=== PATIENT | male | born 1995 | race Caucasian/White ===

== ENCOUNTER → 2020-03-02 | Outpatient (CLI) | payer BC ==
[2020-03-02 11:48] LABS: ABSOLUTE EOSINOPHILS 0.1 thou/uL (0.0-0.7); ABSOLUTE LYMPHOCYTES 2.6 thou/uL (0.8-5.3); ABSOLUTE MONOCYTES 0.8 thou/uL (0.0-1.2); BASOPHILS 0.5 %; EOSINOPHILS 1.5 %; HEMATOCRIT 44.4 % (42.0-52.0); HEMOGLOBIN 15.4 gm/dL (14.0-18.0); LYMPHOCYTES 34.1 %; MCH 30.5 pg (26.0-34.0); MCHC 34.6 g/dL (28.0-37.0); MCV 88.1 fL (80.0-100.0); MONOCYTES 10.8 %; MPV 7.3 fl. (7.2-11.1); NUCLEATED RBCS 0 /100WBC; PLATELET COUNT* 256 thou/uL (150-400); POLYS 53.1 %; RBC 5.04 mil/uL (4.50-6.00); RDW-CV 12.6 % (10.5-14.5); WBC 7.6 thou/uL (4.0-11.0)
[2020-03-02 12:01] LABS: ALBUMIN 4.5 g/dL (3.4-5.0); ALKALINE PHOSPHATASE 59 U/L (46-116); ANION GAP 6 mmol/L (7-16); BUN 13 mg/dL (7-18); CALCIUM 9.2 mg/dL (8.5-10.1); CHLORIDE 102 mmol/L (98-107); CHOLESTEROL 130 mg/dL (<200); CO2 33 mmol/L (21-32); GLUCOSE 80 mg/dL (70-99); HDL CHOLESTEROL 67 mg/dL (>40); LDL CHOLESTEROL 50 mg/dL (<100); POTASSIUM 4.1 mmol/L (3.5-5.1); SERUM ASSESSMENT Clear; SGOT 44 U/L (15-37); SGPT 142 U/L (30-65); SODIUM 141 mmol/L (136-145); TC:HDL 1.9 Ratio (Not establshd); TOTAL PROTEIN 8.1 g/dL (6.4-8.2); TRIGLYCERIDE 66 mg/dL (<150); VLDL 13 mg/dL (<40)
[2020-03-04 02:05] LABS: GLYCOHEMOGLOBIN (HGB A1C) 5.1 % (4.8-5.6)
== END ==
LOC: M.LAB 11:25
DX: Z79.899 Other long term (current) drug therapy (principal); F25.1 Schizoaffective disorder, depressive type

== ENCOUNTER → 2020-04-29 | Outpatient (CLI) | payer BC | LOC: M.LAB 11:38 | DX: F25.1 Schizoaffective disorder, depressive type (principal); Z79.899 Other long term (current) drug therapy ==

== ENCOUNTER → 2020-06-10 | Outpatient (CLI) | payer BC ==
[2020-06-10 13:03] LABS: ALBUMIN 4.4 g/dL (3.4-5.0); CALCIUM 9.1 mg/dL (8.5-10.1); CREATININE 0.9 mg/dL (0.6-1.3); DIRECT BILIRUBIN 0.1 mg/dL (<0.1-0.3); POTASSIUM 4.2 mmol/L (3.5-5.1); TOTAL BILIRUBIN 0.5 mg/dL (<0.1-1.0); TOTAL PROTEIN 7.4 g/dL (6.4-8.2)
== END ==
LOC: M.LAB 12:24
DX: F25.1 Schizoaffective disorder, depressive type (principal); Z79.899 Other long term (current) drug therapy

== ENCOUNTER → 2020-10-24 | Outpatient (CLI) | payer BC | LOC: M.LAB 16:49 | DX: F25.1 Schizoaffective disorder, depressive type (principal); Z79.899 Other long term (current) drug therapy ==

== ENCOUNTER → 2021-01-04 | Outpatient (CLI) | payer BC | LOC: M.LAB 13:49 | DX: F25.1 Schizoaffective disorder, depressive type (principal); Z79.899 Other long term (current) drug therapy ==

== ENCOUNTER → 2021-04-26 | Outpatient (CLI) | payer BC ==
[2021-04-26 10:59] LABS: ABSOLUTE EOSINOPHILS 0.1 thou/uL (0.0-0.7); ABSOLUTE MONOCYTES 0.7 thou/uL (0.0-1.2); ABSOLUTE NEUTROPHILS 3.8 thou/uL (1.6-8.1); BASOPHILS 0.4 %; EOSINOPHILS 0.9 %; HEMATOCRIT 48.2 % (42.0-52.0); HEMOGLOBIN 16.5 gm/dL (14.0-18.0); LYMPHOCYTES 30.1 %; MCH 30.6 pg (26.0-34.0); MCHC 34.3 g/dL (28.0-37.0); MCV 89.3 fL (80.0-100.0); MONOCYTES 10.3 %; MPV 7.3 fl. (7.2-11.1); NUCLEATED RBCS 0 /100WBC; PLATELET COUNT* 264 thou/uL (150-400); POLYS 58.3 %; RDW-CV 12.7 % (10.5-14.5); WBC 6.6 thou/uL (4.0-11.0)
[2021-04-26 11:12] LABS: ALBUMIN 4.6 g/dL (3.4-5.0); ALKALINE PHOSPHATASE 68 U/L (46-116); ANION GAP 8 mmol/L (7-16); BUN 10 mg/dL (7-18); CALCIUM 9.4 mg/dL (8.5-10.1); CHLORIDE 102 mmol/L (98-107); CHOLESTEROL 116 mg/dL (<200); CO2 29 mmol/L (21-32); CREATININE 1.1 mg/dL (0.6-1.3); GLUCOSE 83 mg/dL (70-99); HDL CHOLESTEROL 62 mg/dL (>40); LDL CHOLESTEROL 45 mg/dL (<100); POTASSIUM 3.8 mmol/L (3.5-5.1); SGOT 18 U/L (15-37); SGPT 23 U/L (30-65); SODIUM 139 mmol/L (136-145); TC:HDL 1.9 Ratio (Not establshd); TOTAL BILIRUBIN 0.8 mg/dL (<0.1-1.0); TOTAL PROTEIN 7.8 g/dL (6.4-8.2); TRIGLYCERIDE 46 mg/dL (<150); VLDL 9 mg/dL (<40)
[2021-04-26 11:13] LABS: SERUM ASSESSMENT Clear
[2021-04-27 05:36] LABS: GLYCOHEMOGLOBIN (HGB A1C) 5.1 % (4.8-5.6)
== END ==
LOC: M.LAB 10:35
DX: F25.1 Schizoaffective disorder, depressive type (principal); Z79.899 Other long term (current) drug therapy